=== PATIENT | female | born 1985 | race Caucasian/White ===

== ENCOUNTER 2019-04-26 08:29 | Outpatient (CLI) | payer MEDICARE, MEDICAID, SELFPAY ==
--- NOTE | 2019-04-26 08:50 | CT_ITS ---
WS: [id number] CT LUMBAR SPINE, noncontrast. HISTORY: LOW BACK PAIN TECHNIQUE: Contiguous 2.5 mm axial imaging are performed. Sagittal and coronal reformats are submitte d and reviewed. All CT scans at [facility] use at least one of these dose optimization te chniques: automated exposure control; mA and/or kV adjustment per patient size (includes targeted exa ms where dose is matched to clinical indication); or iterative reconstruction. IV contrast: None DLP: 1852.94 mGycm COMPARISON: None available. Normal lumbar alignment. Moderate disc space narrowing at L5-S1. Vacuum disc phenomenon and sclerotic endplate changes at L5-S1. No fractures. L1-2: Normal. L2-3: Normal. L3-4: Very mild annular disc bulging without stenosis. L4-5: Mild annular disc bulging. No significant stenosis. L5-S1: Mild annular disc bulging with a superimposed large central to LEFT paracentral disc protrusio n. Disc protrusion deforms the LEFT lateral thecal sac and displaces the LEFT S1 nerve root posterior ly. Protrusion extends into the LEFT foramen. There is significant encroachment and narrowing of the LEFT L5 and S1 nerve roots with effacement of fat in the LEFT foramen. Osteophyte encroachment into t he RIGHT foramen with moderate stenosis on the RIGHT. IVC filter. RIGHT kidney is absent. CT/CT lumbar spine wo con* [id number] IMPRESSION: 1. Moderate degenerative disc disease at L5-S1. 2. Large central and LEFT paracentral disc protrusion at L5-S1 with contact on the LEFT S1 and L5 nerve roots. Significant contact on the cord and LEFT roney inal stenosis. Moderate foraminal stenosis on the RIGHT at L5-S1 predominantly due to osteophytes.
--- NOTE | 2019-04-26 08:51 | XR_ITS ---
WS: [id number] LATERAL LUMBAR SPINE: 3 view. Lateral radiographs are performed in upright neutral, flexion and extension to the patient's toleranc e. HISTORY: LOW BACK PAIN COMPARISON: 03/31/2016 Posterior lumbar alignment is normal. Moderate disc space narrowing at L5-S1 and facet arthropathy. W ith flexion and extension there is no instability. IVC filter. XR/XR lumbar spine f/e only [id number] IMPRESSION: Moderate degenerative disc disease at L5-S1. No lumbar spine instability.
== END 2019-04-26 08:30 | disposition home or self-care (01) ==
LOC: RADWPI 08:37
PROVIDERS: Family Provider Family Medicine; PCP Family Medicine; Visit Provider Nurse Practitioner
DX: M51.37 Other intervertebral disc degeneration, lumbosacral region (principal); M48.07 Spinal stenosis, lumbosacral region; M47.817 Spondylosis without myelopathy or radiculopathy, lumbosacral region
CPT/HCPCS: 72120; 72131

== ENCOUNTER → 2019-08-21 10:14 | Outpatient (BNVA) | payer MEDICARE, MEDICAID, SELFPAY | PROVIDERS: Family Provider Family Medicine; PCP Family Medicine; Visit Provider Nurse Practitioner | DX: N39.0 Urinary tract infection, site not specified (principal) | CPT/HCPCS: 81000 ==

== ENCOUNTER 2019-08-30 12:00 | Outpatient (CLI) | payer MEDICARE, MEDICAID, SELFPAY | END 2019-08-30 12:01 | disposition home or self-care (01) | LOC: SLEEP 08-31 09:50 | PROVIDERS: Family Provider Family Medicine; PCP Family Medicine; Visit Provider Anesthesiology Pain Medicine | DX: G47.10 Hypersomnia, unspecified (principal) | CPT/HCPCS: G0399 ==

== ENCOUNTER → 2020-07-27 13:41 | Outpatient (BNVA) | payer MEDICARE, MEDICAID, SELFPAY | PROVIDERS: Family Provider Family Medicine; PCP Family Medicine; Visit Provider Nurse Practitioner | DX: N39.0 Urinary tract infection, site not specified (principal) | CPT/HCPCS: 81000; 87086 ==

== ENCOUNTER 2020-10-08 10:37 | Outpatient (CLI) | payer MEDICARE, MEDICAID, SELFPAY ==
[2020-10-08 11:39] LABS: Hepatitis B Surface Antigen Non-Reactive (Nonreactive); Hepatitis C Virus Antibody Reactive (Nonreactive)
[2020-10-08 12:24] LABS: HIV 1 & 2 Antibody Non-Reactive (Non-Reactiv); HIV 1 & 2 Antigen Non-Reactive (Non-Reactiv)
== END 2020-10-08 10:38 | disposition home or self-care (01) ==
PROVIDERS: PCP Family Medicine; Visit Provider Family Medicine
DX: Z11.4 Encounter for screening for human immunodeficiency virus [HIV] (principal)
CPT/HCPCS: 86803; 87340; 87806

== ENCOUNTER 2020-10-16 16:15 | Emergency (ER) | payer MEDICARE, MEDICAID, SELFPAY ==
[2020-10-16 16:50] VITALS: BP 113/74; PULSE 93; RESP 18; TEMP 36.1; O2SAT 97; BMI 24.7
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
[2020-10-16 17:43] LABS: SARS Covid-2 Antigen Negative (Negative)
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
--- NOTE | 2020-10-21 10:58 | DCPLANNER ---
microbiology laboratory manager had message to speak with patient about rehab information. microbiology laboratory manager spoke with patient, and left a packet of information that patient is to pick out hand at the help desk technician in the ER.
== END 2020-10-16 18:37 | disposition home or self-care (01) ==
PROVIDERS: Emergency Provider Nurse Practitioner Family; PCP Family Medicine
DX: M54.2 Cervicalgia (principal); M25.519 Pain in unspecified shoulder; J20.9 Acute bronchitis, unspecified; F19.10 Other psychoactive substance abuse, uncomplicated; F17.200 Nicotine dependence, unspecified, uncomplicated
CPT/HCPCS: 72040; 72072; 87426; 99283